=== PATIENT | female | born 1945 | race Caucasian/White ===

== ENCOUNTER 2021-04-23 14:34 | Inpatient (IN) | payer MEDICARE, BC ==
[~2021-04-23] VITALS: Ht 167.6 cm; Wt 54.4 kg
[2021-04-23] MEDS ORDERED: ESCI5TAB PO (14:57)
[2021-04-23] MEDS ORDERED: MELO-107 PO (14:57)
[2021-04-23] MEDS ORDERED: SIMV-46 PO (14:57)
[2021-04-23] MEDS ORDERED: MULT-447 PO (14:57)
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
[2021-04-23] MEDS ORDERED: OXYB10TA30 PO (15:09)
[2021-04-23] MEDS ORDERED: ACETAMINOPHEN 325 MG TABLET PO PRN (15:30)
[2021-04-23] MEDS ORDERED: BLOOD SUGAR DIAGNOSTIC 1 EACH STRIP IN ONE (15:30)
[2021-04-23] MEDS ORDERED: MAGNESIUM HYDROXIDE 30 ML UDC PO PRN (15:30)
[2021-04-23] MEDS ORDERED: MAG HYDROX/AL HYDROX/SIMETH 30 ML UDC PO PRN (15:30)
[2021-04-23 16:25] VITALS: BP 123/57
[2021-04-23 20:00] VITALS: BP 126/76
--- NOTE | 2021-04-24 07:03 | NUR ---
[facility] RN CLOSING NOTES: PATIENT IS AWAKE, A/O X2. PATIENT SLEPT 8HR THIS SHIFT. NO S/S OF DISTRESS. RESPIRATION EVEN AND UNLABORED WITH EQUAL RISE AND FALL OF THE CHEST ON ROOM AIR. ALL PATIENT CARE NEEDS HAVE BEEN MET ANTICIPATED. WILL CONTINUE TO MONITOR FOR SAFETY, MOOD AND BEHAVIOR AND ENDORSE TO AM SHIFT.
[2021-04-24 07:44] LABS: CHOLESTEROL 187 mg/dL (<200); HDL CHOLESTEROL 58 mg/dL (40-60); LDL 110 mg/dL (0-99); TRIGLYCERIDES 81 mg/dL (30-150)
[2021-04-24 08:00] VITALS: BP 138/93
[2021-04-24 08:22] LABS: ALBUMIN 3.4 g/dL (3.4-5.0); BILIRUBIN,TOTAL 0.5 mg/dL (0.2-1.0); CALCIUM, SERUM 9.1 mg/dL (8.5-10.1); CREATININE 0.7 mg/dL (0.6-1.3); POTASSIUM 3.9 mmol/L (3.5-5.1); TOTAL PROTEIN, SERUM 6.7 g/dL (6.4-8.2)
[2021-04-24] MEDS: OXYBUTYNIN CHLORIDE ER 5 MG TAB PO SCH ×2 (09:16→10:00)
[2021-04-24] MEDS: MELOXICAM 7.5 MG TABLET PO SCH ×2 (09:16→10:00)
[2021-04-24] MEDS: MULTIVIT W/MINERALS 1 TAB TABLET PO SCH ×2 (09:16→10:00)
--- NOTE | 2021-04-24 10:17 | NUR ---
[facility]/RN PT REFUSED AM MEDS OFFERED X3
[2021-04-24 15:54] VITALS: BP 139/83
[2021-04-24 20:00] VITALS: BP 132/67
[2021-04-24] MEDS: risperiDONE 1 MG TABLET PO SCH (21:28)
[2021-04-24] MEDS: DIVALPROEX SODIUM 250 MG TABLET.DR PO SCH (21:28)
[2021-04-25 08:00] VITALS: BP 142/87
[2021-04-25] MEDS: DIVALPROEX SODIUM 250 MG TABLET.DR PO SCH ×2 (08:27→21:34)
[2021-04-25] MEDS: MULTIVIT W/MINERALS 1 TAB TABLET PO SCH (08:28)
[2021-04-25] MEDS: MELOXICAM 7.5 MG TABLET PO SCH (08:35)
[2021-04-25] MEDS: OXYBUTYNIN CHLORIDE ER 5 MG TAB PO SCH (08:35)
[2021-04-25] MEDS: risperiDONE 1 MG TABLET PO SCH ×2 (08:35→21:34)
[2021-04-25 16:00] VITALS: BP 132/69
[2021-04-25 19:47] VITALS: BP 110/68
[2021-04-25 20:00] VITALS: BP 110/68
[2021-04-26 08:00] VITALS: BP 110/75
--- NOTE | 2021-04-26 09:00 | NUR ---
RN NOTE- PT ALERT INTERACTIVE AFFECT APPROPRIATE THOUGH LOOSE ASSOCIATIONS PRESENT. PT MINIMIZES DURING INTERACTION. MED COMPLIANT THOUGH QUESTIONS AT LENGTH... PO INTAKE GOOD ISOLATIVE TO ROOM
[2021-04-26] MEDS: MELOXICAM 7.5 MG TABLET PO SCH (09:05)
[2021-04-26] MEDS: OXYBUTYNIN CHLORIDE ER 5 MG TAB PO SCH (09:05)
[2021-04-26] MEDS: MULTIVIT W/MINERALS 1 TAB TABLET PO SCH (09:05)
[2021-04-26] MEDS: DIVALPROEX SODIUM 250 MG TABLET.DR PO SCH ×2 (09:05→21:19)
[2021-04-26] MEDS: risperiDONE 1 MG TABLET PO SCH ×2 (09:05→21:20)
--- NOTE | 2021-04-26 09:33 | NUR ---
Probable Cause Hearing: Pts [id number] hold was upheld for grave disability.
[2021-04-26 16:00] VITALS: BP 137/74
--- NOTE | 2021-04-26 19:30 | NUR ---
[facility] RN OPENING PATIENT A/OX3. NO S/S OF APPARENT DISTRESS. BREATHING UNLABORED WITH EQUAL RISE AND FALL OF THE CHEST. TOLERATING ROOM AIR WITH SPO2 95%. NO C/O PAIN TELMA. PATIENT COOPERATIVE AND AFFECT APPROPRIATE TELMA. PATIENT DENIES SUICIDAL IDEATION AND HOMICIDAL IDEATIONS AT THIS TIME. SAFETY IN PLACE, BED IN LOWEST, LOCKED POSITION, SIDE RAILS UP X2, BED ALARM ON. WILL CONTINUE TO MONITOR Q15 MIN WITH THE HELP OF STAFF TO MAINTAIN SAFETY.
[2021-04-26 20:12] VITALS: BP 140/86
--- NOTE | 2021-04-27 06:21 | NUR ---
[facility] RN CLOSING PATIENT IN BED, EASY TO AROUSE. A/OX4. NO S/S OF APPARENT DISTRESS. BREATHING UNLABORED WITH EQUAL RISE AND FALL OF THE CHEST. TOLERATING ROOM AIR. NO C/O PAIN TELMA. ALL NEEDS ATTENDED. PATIENT COMPLIANT WITH MEDS. PATIENT DENIES SUICIDAL IDEATION AND HOMICIDAL IDEATIONS AT THIS TIME. SAFETY KEPT IN PLACE THE WHOLE SHIFT, BED IN LOWEST, LOCKED POSITION, SIDE RAILS UP X2, BED ALARM ON. PATIENT PLAN FOR DISCHARGE TODAY, EXIT CARE DONE, JUST DOUBLE CHECK. PATIENT ASKING FOR COPY OF LAB WORKS. WILL ENDORSE CARE TO MORNING SHIFT RN.
[2021-04-27] MEDS: MELOXICAM 7.5 MG TABLET PO SCH (08:11)
[2021-04-27] MEDS: DIVALPROEX SODIUM 250 MG TABLET.DR PO SCH (08:11)
[2021-04-27] MEDS: OXYBUTYNIN CHLORIDE ER 5 MG TAB PO SCH (08:11)
[2021-04-27] MEDS: risperiDONE 1 MG TABLET PO SCH (08:11)
[2021-04-27] MEDS: MULTIVIT W/MINERALS 1 TAB TABLET PO SCH (08:11)
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
--- NOTE | 2021-04-27 09:07 | NUR ---
Family Contact: MICHELLE spoke to the pts son, Hai ([phone]), and informed him that the pt is going to be discharged today. He stated that he would arrive around 12pm.
--- NOTE | 2021-04-27 09:08 | NUR ---
Discharge Note: Pt will be discharged to her home located at [address], [address], [place] [address]; ([phone]). Pt will be picked up by her son, Hai ([phone]), around 12pm. Upon discharge, the pt appeared to be alert and oriented x4 (time, place, self and situation). Pt appeared to be in a euthymic mood and presented with a calm mood. Pt denied both suicidal and homicidal ideation as well as auditory and visual hallucinations. Pt is ambulatory and appears to be well groomed. Pt will continue to be under the care of psychiatrist, Dr. Braxton, located at [address] [facility], [place] [address]; . Pt will also be under the care of her copy chaser, Dr. Abebe, located at [address] [address] [address], [place] [address]; . The multidisciplinary exit care form was done, printed, signed, and given to the patient.
[2021-04-27 09:56] VITALS: BP 130/61
--- NOTE | 2021-04-27 11:00 | NUR ---
[facility] phd intern: notes received discharge order to home by cn. son to picker pt. pt stable for discharge. denied si/hi and denies auditory/visual hallucinations.
--- NOTE | 2021-04-27 13:00 | NUR ---
[facility] medical coder: discharge discharge pt home accompanied by kenneth (son) via private car in stable condition with valuables and d'c papers.
== END 2021-04-27 13:00 | disposition still patient (30) | DRG 885 ==
LOC: GPS 14:34
PROVIDERS: ADMIT Psychiatry & Neurology Psychiatry; ATTEND Internal Medicine
DX: F39 Unspecified mood [affective] disorder (principal); F29 Unspecified psychosis not due to a substance or known physiological condition; F41.9 Anxiety disorder, unspecified; F03.90 Unspecified dementia, unspecified severity, without behavioral disturbance, psychotic disturbance, mood disturbance, and anxiety; Z73.6 Limitation of activities due to disability; R53.1 Weakness; R27.8 Other lack of coordination; E78.5 Hyperlipidemia, unspecified; I10 Essential (primary) hypertension; F32.9 Major depressive disorder, single episode, unspecified; Z91.81 History of falling; N39.41 Urge incontinence
CPT/HCPCS: 36415; 80053-TC; 80061-TC; 82962-TC; 87081-TC